=== PATIENT | male | born 1965 | race Caucasian/White ===

== ENCOUNTER 2020-01-22 19:31 | Emergency (ER) | payer OTHER ==
[~2020-01-22 19:31] MED LIST: Iopamidol 370 76% 100 ML VIAL ONE
[2020-01-22 20:08] LABS: #Lymphocytes 0.9 thou/uL (1.20-3.40); #Monocytes 0.2 thou/uL (0.11-0.59); #Neutrophils 7.6 thou/uL (1.40-6.50); %Basophils 0.1 % (0.0-1.0); %Eosinophils 0.1 % (0.0-10.0); %Lymphocytes 10.6 % (21.0-51.0); %Monocytes 2.4 % (0.0-10.0); %Neutrophils 86.9 % (42.0-75.0); Hemoglobin 16.7 g/dL (14.0-18.0); Mean Corpuscular HGB CONC 31.4 g/dL (32.0-36.0); Mean Corpuscular Hemoglobin 29.3 pg (27.0-31.0); Mean Corpuscular Volume 93.2 fL (78.0-98.0); Mean Platelet Volume 7.1 fL (7.4-10.4); Platelet Count 214 thou/uL (130-400); RBC Distribution Width 12.4 % (11.5-14.5); Red Blood Cell (RBC) Count 5.69 mill/uL (4.70-6.10); White Blood Cell (WBC) Count 8.7 thou/uL (4.8-10.8)
[2020-01-22] MEDS ORDERED: Acetaminophen 500 MG TAB ONE (20:14)
[2020-01-22] MEDS ORDERED: Cefepime 2 GM VIAL ONE (20:15)
[2020-01-22] MEDS ORDERED: Sodium Chloride 0.9% 100 ML ONE ×2 (20:16→20:35)
[2020-01-22] MEDS ORDERED: Ibuprofen 800 MG TAB ONE (20:18)
[2020-01-22 20:23] LABS: ALT (SGPT) 17 U/L (8-55); AST (SGOT) 63 U/L (5-34); Albumin 3.8 g/dL (3.5-5.0); Alkaline Phosphatase 73 U/L (40-110); Anion Gap 20 mmol/L (10-20); BUN (Urea Nitrogen) 20 mg/dL (8.4-25.7); Bilirubin, Total 0.6 mg/dL (0.2-1.2); Calc. Creatinine Clearance 0 mL/min (70-130); Calcium 9.4 mg/dL (7.8-10.44); Carbon Dioxide 18 mmol/L (22-29); Chloride 103 mmol/L (98-107); Estimated GFR-MDRD 71; Globulin 4.3 g/dL (2.4-3.5); Glucose 129 mg/dL (70-105); Magnesium 2.2 mg/dL (1.6-2.6); Potassium 3.9 mmol/L (3.5-5.1); Protein, Total 8.1 g/dL (6.0-8.3); Sodium 137 mmol/L (136-145)
[2020-01-22] MEDS ORDERED: Diltiazem 125 MG/25 ML ONE (20:33)
[2020-01-22] MEDS ORDERED: Sodium Chloride 0.9% 1,000 ML ONE (20:35)
--- NOTE | 2020-01-22 21:02 | RAD ---
PORTABLE CHEST: 01/22/20 HISTORY: Shortness of breath, cough and fever. was diagnosed with COVID. The film is of suboptimal inspiration. The heart size is within normal limits. Pulmonary vessels appe ar somewhat engorged but this may just be related to the poor inspiratory effort. No definite infiltr ative process although questionable increased markings in the left lung base. IMPRESSION: Suboptimal inspiration. Questionable minimally asymmetric markings along the left heart border. This could possibly represent some early ground glass infiltrate. POS: [facility]
--- NOTE | 2020-01-22 21:44 | CT ---
CT ANGIO OF CHEST PERFORMED WITH INTRAVENOUS CONTRAST ENHANCEMENT WITH 3D RECONSTRUCTIONS: 01/22/20 HISTORY: Shortness of breath, fever and chills. has been diagnosed with COVID. COMPARISON: Chest x-ray done earlier today. Diffuse ground glass opacities in both lung huerta are seen. These have a slightly greater upper lobe predominance but also some moderate lower lobe changes. Fairly symmetric, although the changes are s lightly greater on the left side. These changes would be typical for COVID. Pulmonary artery opacification is not optimal. I do not see any proximal pulmonary embolus. No medias tinal adenopathy. The visualized liver parenchyma shows no focal findings. IMPRESSION: Ground glass opacities in both lung huerta which are compatible with COVID pneumonia. POS: [facility]
[2020-01-22] MEDS ORDERED: Enoxaparin Sodium 100 MG/ML SYRINGE ONE (21:48)
== END 2020-01-22 22:03 | disposition short-term general hospital (02) ==
LOC: NAV ERS 19:31
DX: I48.91 Unspecified atrial fibrillation (principal); A41.9 Sepsis, unspecified organism; Z20.828 Contact with and (suspected) exposure to other viral communicable diseases
CPT/HCPCS: 71045; 71270; 80053; 83605; 83735; 83880; 84484; 85025; 85379; 87040; 93005; 94760; 96365; 96367; 96372; 96375; 96376; J0692; J1650; J3490; J7050; Q9967